=== PATIENT | male | born 1965 | race Caucasian/White ===

== ENCOUNTER 2020-01-09 08:00 | Outpatient (RCR) | payer OTHER, SELFPAY ==
--- NOTE | 2019-12-18 11:57 | PTOPEVAL ---
PHYSICAL THERAPY EVALUATION AND PLAN OF CARE Thank you for referring this patient to [facility]. Philipp will be seen in skilled PT 1-2x/week for 4-6 weeks. Please review, sign, date and return this plan of care NESTOR. I agree with and certify that the following plan of care is medically necessary. Referring Physician Date Attending Provider: Keenan Krishnan, DO Evaluation Outpatient Past Medical History Cardiovascular History Hx Hypercholesterolemia Yes Hx Hypertension Yes Gastrointestinal History Hx Gastroesophageal Reflux Disease Yes Evaluation Information Problem Diagnosis back pain, right hip pain Onset 5 years Subjective Information Philipp is here today with right Query Text:As Reported By Patient/ hip and low back pain. He has Family been experiencing right hip pain for several years that would increase even by wearing a tool belt. About a month ago, his back pain, that is chronic, started to increase to the point he would wake every couple of hours. States that the back pain seems to be improved over the last week because he is doing more. 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 Prior Level of Function Activity Level (Last 3 Months) Occupation desk what job titles mean Dominance Right Self Report Pain Assessment Spine, Lumbar Reported Pain Level 1 Pain Description Aching,Tightness Pain Frequency Acute,Intermittent Current Pain Intensity 1 Lowest Pain Intensity 0 Greatest Pain Intensity 8 Right Hip(s) Reported Pain Level 2 Pain Description Aching,Tightness Current Pain Intensity 3 Lowest Pain Intensity 1 Greatest Pain Intensity 4 Pain Aggravating Factors Walking,Weight Bearing/ Standing Pain Behaviors None Pain Relief Interventions Used By Inactivity/Rest,Lying Supine Patient Lumbar Flexion Active Knee Lumbar Extension (0-40) 25 Lateral Rotation Right (0-45) 35 Lateral Rotation Left (0-45) 35 Lower Extremity Range of Motion WFL/Left,WFL/Right Gross Lower Extremity Range of Motion no significant limitation to Comments hip IR, but right has less IR
--- NOTE | 2020-01-09 08:19 | PTOPEVAL ---
PHYSICAL THERAPY DISCHARGE REPORT Thank you for referring this patient to [facility]. I recommend discharge from PT at this time. Please review, sign, date and return this discharge summary NESTOR. I agree with and certify that the following plan of care is medically necessary. Referring Physician Date Attending Provider: Keenan Krishnan, DO Discharge Outpatient Past Medical History Cardiovascular History Hx Hypercholesterolemia Yes Hx Hypertension Yes Gastrointestinal History Hx Gastroesophageal Reflux Disease Yes Evaluation Information Diagnosis back pain, right hip pain Onset 5 years Subjective Information Philipp reports today that he no Query Text:As Reported By Patient/ longer has pain every day. He Family does have some pain a day or two a week, but generally he can change his position to find relief. 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 Timing of Pain Assessment Pre-Treatment Pain Scale Pain Scale Used Numeric (1 - 10) Lumbar ROM Lumbar Flexion Active Ankle Lumbar Extension (0-40) 30 Lateral Rotation Right (0-45) 35 Lateral Rotation Left (0-45) 35 Lower Extremity Range of Motion Reason Not Measured WFL/Left,WFL/Right Hip Strength Left Hip Flexion Strength 5 Normal Hip Extension Strength 4 Good Hip Abduction Strength 4+ Good + Right Hip Flexion Strength 5 Normal Hip Extension Strength 4 Good Hip Abduction Strength 4+ Good + Knee Strength Bilateral Knee Flexion Strength 5 Normal Knee Extension Strength 5 Normal Muscle Length Testing Maryann's Test Hip Muscle Length (R) Mild Tightness,(L) Mild Tightness Left Hamstring Length -35 Query Text:(90 - 90 Position) Right Hamstring Length -30 Query Text:(90 - 90 Position) Clinical Summary Philipp has participated in 4 sessions of physical therapy to address chronic right LBP and right hip pain. His strength has now balanced and is WFL. His pelvis moves symmetrical and his lumbar ROM is WFL. Philipp
== END 2020-01-09 08:39 | disposition home or self-care (01) ==
LOC: ANHPT 08:00
PROVIDERS: PCP Internal Medicine; Visit Provider Internal Medicine
DX: M54.5 Low back pain (principal); M25.551 Pain in right hip; G89.29 Other chronic pain
CPT/HCPCS: 97110; 97140; 97161

== ENCOUNTER 2020-05-13 07:19 | Outpatient (CLI) | payer OTHER, SELFPAY ==
[2020-05-13 07:47] LABS: Alanine Aminotransferase 35 U/L (4-50); Albumin Level 4.4 g/dL (3.5-5.1); Alkaline Phosphatase 69 U/L (38-126); Aspartate Amino Transferase 29 U/L (17-59); Bilirubin,Total 0.5 mg/dL (0.2-1.3); Blood Urea Nitrogen 16 mg/dL (9-20); Calcium 9.9 mg/dL (8.4-10.2); Carbon Dioxide 28 mmol/L (22-30); Chloride 102 mmol/L (98-107); Cholesterol 153 mg/dL (0-200); Estimated Glomerular Filt Rate > 60; Glucose 128 mg/dL (75-110); HDL Direct 32 mg/dL; Potassium 4.2 mmol/L (3.4-5.0); Sodium 136 mmol/L (137-145); Triglycerides 199 mg/dL (<150)
[2020-05-13 07:58] LABS: LDL Cholesterol Direct 82 mg/dL
== END 2020-05-13 07:20 | disposition home or self-care (01) ==
PROVIDERS: PCP Internal Medicine; Visit Provider Internal Medicine
DX: E78.5 Hyperlipidemia, unspecified (principal); R73.03 Prediabetes; I10 Essential (primary) hypertension; Z79.899 Other long term (current) drug therapy
CPT/HCPCS: 36415; 80053; 80061; 83036

== ENCOUNTER 2020-11-12 06:57 | Outpatient (CLI) | payer OTHER, SELFPAY ==
[2020-11-12 07:27] LABS: Hemoglobin A1C 5.6 % (<5.7)
[2020-11-12 07:31] LABS: Alanine Aminotransferase 37 U/L (4-50); Albumin Level 4.2 g/dL (3.5-5.1); Alkaline Phosphatase 62 U/L (38-126); Anion Gap 7 mmol/L (8-16); Aspartate Amino Transferase 32 U/L (17-59); Bilirubin,Total 0.3 mg/dL (0.2-1.3); Blood Urea Nitrogen 15 mg/dL (9-20); Calcium 9.6 mg/dL (8.4-10.2); Carbon Dioxide 28 mmol/L (22-30); Chloride 102 mmol/L (98-107); Cholesterol 152 mg/dL (0-200); Estimated Glomerular Filt Rate > 60; Glucose 122 mg/dL (75-110); HDL Direct 34 mg/dL; Potassium 4.4 mmol/L (3.4-5.0); Sodium 137 mmol/L (137-145); Triglycerides 172 mg/dL (<150)
[2020-11-12 07:43] LABS: LDL Cholesterol Direct 97 mg/dL
[2020-11-12 08:02] LABS: Prostate Specific Antigen 0.4 ng/mL (< OR = 4.0)
== END 2020-11-12 06:58 | disposition home or self-care (01) ==
LOC: ANHLAB 06:59
PROVIDERS: PCP Internal Medicine; Visit Provider Nurse Practitioner
DX: Z12.5 Encounter for screening for malignant neoplasm of prostate (principal); E78.2 Mixed hyperlipidemia; R73.03 Prediabetes
CPT/HCPCS: 36415; 80053; 80061; 83036; 84153; G0103

== ENCOUNTER 2021-05-29 06:49 | Outpatient (CLI) | payer OTHER, SELFPAY ==
[2021-05-29 07:42] LABS: Alanine Aminotransferase 34 U/L (4-50); Albumin Level 4.3 g/dL (3.5-5.1); Alkaline Phosphatase 55 U/L (38-126); Anion Gap 9 mmol/L (8-16); Aspartate Amino Transferase 32 U/L (17-59); Bilirubin,Total 0.4 mg/dL (0.2-1.3); Blood Urea Nitrogen 19 mg/dL (9-20); Calcium 9.5 mg/dL (8.4-10.2); Carbon Dioxide 24 mmol/L (22-30); Chloride 105 mmol/L (98-107); Cholesterol 155 mg/dL (0-200); Estimated Glomerular Filt Rate > 60; Glucose 119 mg/dL (75-110); HDL Direct 34 mg/dL; Potassium 4.3 mmol/L (3.4-5.0); Sodium 138 mmol/L (137-145); Triglycerides 175 mg/dL (<150)
[2021-05-29 07:53] LABS: LDL Cholesterol Direct 80 mg/dL
[2021-05-29 09:04] LABS: Hemoglobin A1C 5.9 % (<5.7)
== END 2021-05-29 06:50 | disposition home or self-care (01) ==
LOC: ANHLAB 06:52
PROVIDERS: PCP Internal Medicine; Visit Provider Nurse Practitioner
DX: E78.2 Mixed hyperlipidemia (principal); R73.03 Prediabetes
CPT/HCPCS: 36415; 80053; 80061; 83036

== ENCOUNTER 2021-12-09 06:45 | Outpatient (CLI) | payer OTHER, SELFPAY ==
[2021-12-09 08:31] LABS: Alanine Aminotransferase 35 U/L (4-50); Albumin Level 4.5 g/dL (3.5-5.1); Alkaline Phosphatase 64 U/L (38-126); Anion Gap 10 mmol/L (8-16); Aspartate Amino Transferase 30 U/L (17-59); Bilirubin,Total 0.5 mg/dL (0.2-1.3); Blood Urea Nitrogen 19 mg/dL (9-20); Calcium 9.8 mg/dL (8.4-10.2); Carbon Dioxide 29 mmol/L (22-30); Chloride 98 mmol/L (98-107); Cholesterol 148 mg/dL (0-200); Estimated Glomerular Filt Rate > 60; Glucose 107 mg/dL (65-110); HDL Direct 37 mg/dL; Sodium 137 mmol/L (137-145); Triglycerides 189 mg/dL (<150)
[2021-12-09 08:43] LABS: LDL Cholesterol Direct 82 mg/dL
[2021-12-09 09:01] LABS: Prostate Specific Antigen 0.4 ng/mL (< OR = 4.0)
== END 2021-12-09 06:46 | disposition home or self-care (01) ==
LOC: ANHLAB 06:47
PROVIDERS: PCP Internal Medicine; Visit Provider Internal Medicine
DX: Z12.5 Encounter for screening for malignant neoplasm of prostate (principal); Z51.81 Encounter for therapeutic drug level monitoring; Z79.899 Other long term (current) drug therapy; E78.5 Hyperlipidemia, unspecified; I10 Essential (primary) hypertension
CPT/HCPCS: 36415; 80053; 80061; 83036; 84153; G0103

== ENCOUNTER 2022-07-14 07:02 | Outpatient (CLI) | payer OTHER, SELFPAY ==
[2022-07-14 07:32] LABS: Alanine Aminotransferase 32 U/L (6-50); Albumin Level 4.3 g/dL (3.5-5.1); Alkaline Phosphatase 62 U/L (38-126); Anion Gap 11 mmol/L (8-16); Aspartate Amino Transferase 27 U/L (17-59); Bilirubin,Total 0.3 mg/dL (0.2-1.3); Blood Urea Nitrogen 16 mg/dL (9-20); Calcium 9.5 mg/dL (8.4-10.2); Carbon Dioxide 25 mmol/L (22-30); Chloride 100 mmol/L (98-107); Cholesterol 162 mg/dL (0-200); Estimated Glomerular Filt Rate > 60; Glucose 123 mg/dL (65-110); HDL Direct 35 mg/dL; Hemoglobin A1C 5.7 % (<5.7); Potassium 4.1 mmol/L (3.4-5.0); Sodium 136 mmol/L (137-145); Triglycerides 269 mg/dL (<150)
[2022-07-14 07:45] LABS: LDL Cholesterol Direct 76 mg/dL
== END 2022-07-14 07:03 | disposition home or self-care (01) ==
PROVIDERS: PCP Internal Medicine; Visit Provider Internal Medicine
DX: Z51.81 Encounter for therapeutic drug level monitoring (principal); Z79.899 Other long term (current) drug therapy; I10 Essential (primary) hypertension; R73.03 Prediabetes
CPT/HCPCS: 36415; 80053; 80061; 83036

== ENCOUNTER 2023-01-18 06:56 | Outpatient (CLI) | payer OTHER, SELFPAY ==
[2023-01-18 07:30] LABS: Alanine Aminotransferase 39 U/L (6-50); Albumin Level 4.5 g/dL (3.5-5.1); Alkaline Phosphatase 63 U/L (38-126); Anion Gap 6 mmol/L (8-16); Aspartate Amino Transferase 30 U/L (17-59); Bilirubin,Total 0.7 mg/dL (0.2-1.3); Blood Urea Nitrogen 17 mg/dL (9-20); Calcium 9.6 mg/dL (8.4-10.2); Carbon Dioxide 29 mmol/L (22-30); Chloride 103 mmol/L (98-107); Cholesterol 180 mg/dL (0-200); Estimated Glomerular Filt Rate > 60; Glucose 122 mg/dL (65-110); HDL Direct 32 mg/dL; Potassium 4.3 mmol/L (3.4-5.0); Sodium 138 mmol/L (137-145); Triglycerides 173 mg/dL (<150)
[2023-01-18 07:33] LABS: Hemoglobin A1C 5.9 % (<5.7)
[2023-01-18 07:41] LABS: LDL Cholesterol Direct 104 mg/dL
[2023-01-18 08:00] LABS: Prostate Specific Antigen 0.6 ng/mL (< OR = 4.0)
== END 2023-01-18 06:57 | disposition home or self-care (01) ==
PROVIDERS: PCP Internal Medicine; Visit Provider Nurse Practitioner
DX: E78.5 Hyperlipidemia, unspecified (principal); R73.03 Prediabetes; Z12.5 Encounter for screening for malignant neoplasm of prostate
CPT/HCPCS: 36415; 80053; 80061; 83036; 84153; G0103

== ENCOUNTER 2023-07-22 06:42 | Outpatient (CLI) | payer OTHER, SELFPAY ==
[2023-07-22 07:38] LABS: Hemoglobin A1C 5.8 % (<5.7)
[2023-07-22 07:42] LABS: Alanine Aminotransferase 38 U/L (6-50); Albumin Level 4.4 g/dL (3.5-5.1); Alkaline Phosphatase 57 U/L (38-126); Anion Gap 5 mmol/L (8-16); Aspartate Amino Transferase 32 U/L (17-59); Bilirubin,Total 0.4 mg/dL (0.2-1.3); Blood Urea Nitrogen 19 mg/dL (9-20); Calcium 9.4 mg/dL (8.4-10.2); Carbon Dioxide 26 mmol/L (22-30); Chloride 101 mmol/L (98-107); Cholesterol 159 mg/dL (0-200); Estimated Glomerular Filt Rate > 60; Glucose 122 mg/dL (65-110); HDL Direct 35 mg/dL; Potassium 4.7 mmol/L (3.4-5.0); Sodium 132 mmol/L (137-145); Triglycerides 138 mg/dL (<150)
[2023-07-22 07:52] LABS: LDL Cholesterol Direct 90 mg/dL
== END 2023-07-22 06:43 | disposition home or self-care (01) ==
PROVIDERS: PCP Nurse Practitioner; Visit Provider Nurse Practitioner
DX: E78.5 Hyperlipidemia, unspecified (principal); R73.03 Prediabetes
CPT/HCPCS: 36415; 80053; 80061; 83036

== ENCOUNTER 2024-02-03 06:59 | Outpatient (CLI) | payer OTHER, SELFPAY ==
[2024-02-03 07:50] LABS: Alanine Aminotransferase 33 U/L (6-50); Albumin Level 4.2 g/dL (3.5-5.1); Alkaline Phosphatase 69 U/L (38-126); Anion Gap 6 mmol/L (8-16); Aspartate Amino Transferase 30 U/L (17-59); Bilirubin,Total 0.5 mg/dL (0.2-1.3); Blood Urea Nitrogen 18 mg/dL (9-20); Calcium 9.8 mg/dL (8.4-10.2); Carbon Dioxide 26 mmol/L (22-30); Chloride 104 mmol/L (98-107); Cholesterol 151 mg/dL (0-200); Estimated Glomerular Filt Rate > 60; Glucose 128 mg/dL (65-110); HDL Direct 36 mg/dL; Potassium 4.2 mmol/L (3.4-5.0); Sodium 136 mmol/L (137-145); Triglycerides 183 mg/dL (<150)
[2024-02-03 08:01] LABS: LDL Cholesterol Direct 93 mg/dL
[2024-02-03 08:12] LABS: Hemoglobin A1C 6.4 % (<5.7)
[2024-02-03 08:20] LABS: Prostate Specific Antigen 0.7 ng/mL (< OR = 4.0)
== END 2024-02-03 07:00 | disposition home or self-care (01) ==
LOC: ANHLAB 07:01
PROVIDERS: PCP Nurse Practitioner; Visit Provider Nurse Practitioner
DX: E78.5 Hyperlipidemia, unspecified (principal); R73.03 Prediabetes; Z12.5 Encounter for screening for malignant neoplasm of prostate
CPT/HCPCS: 36415; 80053; 80061; 83036; 84153; G0103

== ENCOUNTER 2024-02-24 15:31 | Outpatient (CLI) | payer OTHER, SELFPAY ==
--- NOTE | ~2024-02-24 | CT_ITS ---
EXAMINATION: CT lung screening DATE: 02/24/2024 15:52 INDICATION: History of tobacco dependence. TECHNIQUE: Computed tomography (CT) of the chest was performed without intravenous contrast. The dose -length product was 369.68 mGy-cm. Automated exposure control and iterative reconstruction technique were employed. COMPARISON: None FINDINGS: No thoracic lymphadenopathy. Heart size normal. No significant pleural or pericardial effus ion. Fatty infiltration of the liver. No significant vascular abnormality. No focal airspace consolid ation. No suspicious pulmonary nodules or masses. IMPRESSION: 1. Lung-RADS category 1: Negative. Continue annual screening with noncontrast low-dose chest CT in 12 months. Reviewed, dictated and finalized at location B. IMPRESSION: 1. Lung-RADS category 1: Negative. Continue annual screening with noncontrast l ow-dose chest CT in 12 months.
== END 2024-02-24 15:32 | disposition home or self-care (01) ==
LOC: ANHIMG 15:33
PROVIDERS: PCP Nurse Practitioner; Visit Provider Nurse Practitioner
DX: Z12.2 Encounter for screening for malignant neoplasm of respiratory organs (principal); F17.210 Nicotine dependence, cigarettes, uncomplicated
CPT/HCPCS: 71271

== ENCOUNTER 2024-08-13 06:46 | Outpatient (CLI) | payer OTHER, SELFPAY ==
[2024-08-13 07:18] LABS: Hemoglobin A1C 6.2 % (<5.7)
[2024-08-13 07:26] LABS: Alanine Aminotransferase 32 U/L (6-50); Albumin Level 4.5 g/dL (3.5-5.1); Alkaline Phosphatase 71 U/L (38-126); Anion Gap 10 mmol/L (4-12); Aspartate Amino Transferase 32 U/L (17-59); Bilirubin,Total 0.7 mg/dL (0.2-1.3); Blood Urea Nitrogen 18 mg/dL (9-20); Calcium 10.2 mg/dL (8.4-10.2); Carbon Dioxide 27 mmol/L (22-30); Chloride 98 mmol/L (98-107); Cholesterol 180 mg/dL (0-200); Estimated Glomerular Filt Rate > 60; Glucose 127 mg/dL (65-110); HDL Direct 38 mg/dL; Potassium 4.1 mmol/L (3.4-5.0); Sodium 135 mmol/L (137-145); Triglycerides 229 mg/dL (<150)
[2024-08-13 07:36] LABS: LDL Cholesterol Direct 113 mg/dL
== END 2024-08-13 06:47 | disposition home or self-care (01) ==
LOC: ANHLAB 06:47
PROVIDERS: PCP Nurse Practitioner; Visit Provider Nurse Practitioner
DX: E78.5 Hyperlipidemia, unspecified (principal); R73.03 Prediabetes
CPT/HCPCS: 36415; 80053; 80061; 83036

== ENCOUNTER 2025-02-11 06:54 | Outpatient (CLI) | payer OTHER, SELFPAY ==
[2025-02-11 07:58] LABS: Alanine Aminotransferase 31 U/L (6-50); Albumin Level 4.3 g/dL (3.5-5.1); Alkaline Phosphatase 68 U/L (38-126); Anion Gap 7 mmol/L (4-12); Aspartate Amino Transferase 30 U/L (17-59); Bilirubin,Total 0.5 mg/dL (0.2-1.3); Blood Urea Nitrogen 19 mg/dL (9-20); Calcium 9.4 mg/dL (8.4-10.2); Carbon Dioxide 28 mmol/L (22-30); Chloride 102 mmol/L (98-107); Cholesterol 177 mg/dL (0-200); Estimated Glomerular Filt Rate > 60; Glucose 126 mg/dL (65-110); HDL Direct 38 mg/dL; Potassium 4.1 mmol/L (3.4-5.0); Sodium 137 mmol/L (137-145); Triglycerides 174 mg/dL (<150)
[2025-02-11 08:09] LABS: LDL Cholesterol Direct 103 mg/dL
[2025-02-11 08:26] LABS: Prostate Specific Antigen 0.4 ng/mL (< OR = 4.0)
== END 2025-02-11 06:55 | disposition home or self-care (01) ==
LOC: ANHLAB 06:55
PROVIDERS: PCP Nurse Practitioner; Visit Provider Nurse Practitioner
DX: E78.5 Hyperlipidemia, unspecified (principal); R73.03 Prediabetes; Z12.5 Encounter for screening for malignant neoplasm of prostate
CPT/HCPCS: 36415; 80053; 80061; 83036; 84153; G0103

== ENCOUNTER 2025-04-16 13:20 | Outpatient (CLI) | payer OTHER, SELFPAY ==
--- NOTE | ~2025-04-16 | XR_ITS ---
EXAMINATION: XR chest 2V 04/16/2025 13:55 INDICATION: Fever PROCEDURE: 2 view chest COMPARISON: No prior studies for comparison. FINDINGS: The lungs are clear. The cardiomediastinal silhouette is within normal limits. There are no pleural effusions. There is no pneumothorax suspected. IMPRESSION: 1: NO ACUTE CARDIOPULMONARY DISEASE. Reviewed, dictated and finalized at location B.
[2025-04-16 13:52] LABS: Add Urine Microscopic? YES; Appearance Urine Clear (Clear); Bacteria Urine None Seen /hpf; Bilirubin Urine Negative (Negative); Blood Urine Negative (Negative); Color Urine Yellow (Yellow); Glucose Urine UA Negative (Negative); Ketones Urine Negative (Negative); Leukocyte Esterase Ur Negative LEU/UL (Negative); Nitrate Urine Negative (Negative); Non Pathogenic Casts 0-2; Protein Urine Trace mg/dL (Negative); RBC Urine 0-2 /hpf (0-2); Specific Grav Ur 1.018 (1.001-1.035); Squamous Epithelial Cell Urine None Seen /hpf (Few); Urobilinogen Urine 0.2 mg/dL (<2.0); WBC Urine 0-5 /hpf (0-3); pH Urine 5.5 (5.0-9.0)
[2025-04-16 13:54] LABS: Alanine Aminotransferase 98 U/L (6-50); Albumin Level 4.2 g/dL (3.5-5.1); Alkaline Phosphatase 74 U/L (38-126); Anion Gap 6 mmol/L (4-12); Aspartate Amino Transferase 91 U/L (17-59); Bilirubin,Total 0.6 mg/dL (0.2-1.3); Blood Urea Nitrogen 19 mg/dL (9-20); Calcium 9.7 mg/dL (8.4-10.2); Carbon Dioxide 27 mmol/L (22-30); Chloride 102 mmol/L (98-107); Estimated Glomerular Filt Rate > 60; Glucose 112 mg/dL (65-110); Potassium 4.5 mmol/L (3.4-5.0); Sodium 135 mmol/L (137-145)
[2025-04-16 14:06] LABS: Hemoglobin 13.9 g/dL (14.0-18.0); Mean Corpuscular HGB Conc 33.9 g/dl (32-36); Mean Corpuscular Hemoglobin 31.9 pg (26-34); Mean Platelet Volume 10.7 fl (7.4-10.4); Platelet Count Result 142 k/mm3 (150-375); Red Blood Count 4.36 M/mm3 (4.6-6.20); Red Cell Distribution Width 13.5 % (11.5-14.5); White Blood Count 3.5 K/mm3 (4.5-10.0)
[2025-04-16 14:26] LABS: Influenza A QL RT-PCR Negative (Negative); Influenza B QL RT-PCR Negative (Negative); SARS-CoV-2 RNA PCR Negative (Negative)
== END 2025-04-16 13:21 | disposition home or self-care (01) ==
PROVIDERS: PCP Nurse Practitioner; Visit Provider Nurse Practitioner
DX: R50.9 Fever, unspecified (principal); R53.83 Other fatigue; E78.5 Hyperlipidemia, unspecified; Z20.822 Contact with and (suspected) exposure to COVID-19
CPT/HCPCS: 36415; 71046; 80053; 81001; 85027; 87636